=== PATIENT | male | born 1945 | race Caucasian/White ===

== ENCOUNTER → 2021-12-20 | Outpatient (CLI) | payer MEDICARE ==
[~2021-12-20] MED LIST: ACYC400 PO; ASCO500 PO; Acyclovir400 MG PO; BUPR150ER PO; BUTALB-ASPIRIN1 EAC1 PO; BUTASPCAFT PO; CHOL10002; Coumadin2 MG PO; DESVENLAFAXINE100 MG PO; DIGO.25 PO; FLONASE ALLERG9.9 M2; Flomax0.4 MG PO; Hair, Skin & N1 EACH PO; LANOXIN125 MCG PO; LAVAP17G PO; LORA.5 PO; LOSA50 PO; LOSARTAN POTAS100 MG PO; Levitra20 MG PO; MULTIPLE VITAM1 EACH PO; SILD25T PO; VERA180ERB PO; Verapamil HCl360 MG PO; Viagra100 MG PO; Vitamin D2000 UNIT PO; WARF2 PO; WARF4 PO
[2021-12-20 14:17] LABS: Adenovirus F 40/41 Not Detected (NOT DETECT); Astrovirus Not Detected (NOT DETECT); Campylobacter Sp Not Detected (NOT DETECT); Cryptosporidium Not Detected (NOT DETECT); Cyclospora Cayetanensis Not Detected (NOT DETECT); E. Coli O157 Not Detected (NOT DETECT); Entamoeba Histolytica Not Detected (NOT DETECT); Enteroaggregative E. coli-EAEC Not Detected (NOT DETECT); Enteropathogenic E. coli-EPEC Not Detected (NOT DETECT); Enterotoxigenic E. coli-ETEC Not Detected (NOT DETECT); Giardia Lamblia Not Detected (NOT DETECT); Norovirus GI/GII Not Detected (NOT DETECT); Plesiomonas Shigelloides Not Detected (NOT DETECT); Rotavirus A Not Detected (NOT DETECT); Salmonella Sp Not Detected (NOT DETECT); Sapovirus Not Detected (NOT DETECT); Shiga Toxin-prod E. coli-STEC Not Detected (NOT DETECT); Shigella/Enteroin E. coli-EIEC Not Detected (NOT DETECT); Vibrio Cholerae Not Detected (NOT DETECT); Vibrio Sp Not Detected (NOT DETECT); Yersinia Enterocolitica Not Detected (NOT DETECT)
== END | disposition home or self-care (01) ==
LOC: LAB 10:38 → LAB SHORT 10:38 → LAB FUT 12-19 18:10
PROVIDERS: Family Medicine
DX: R19.7 Diarrhea, unspecified (principal)
CPT/HCPCS: 87507

== ENCOUNTER → 2022-09-17 | Outpatient (CLI) | payer MEDICARE ==
[2022-09-17 16:45] LABS: BASOPHILS PERCENT AUTO 1 % (0-2); EOSINOPHILS ABSOLUTE AUTO 0.15 K/mm3 (0.00-0.68); EOSINOPHILS PERCENT AUTO 2 % (0-6); Hematocrit 42.7 % (37.0-53.0); Hemoglobin 14.5 g/dL (13.5-17.5); IMMATURE GRAN ABSOLUTE AUTO 0.03 K/mm3 (0.00-0.10); IMMATURE GRAN PERCENT AUTO 0 % (0-1); LYMPHOCYTES ABSOLUTE AUTO 1.37 K/mm3 (0.84-5.20); LYMPHOCYTES PERCENT AUTO 18 % (21-46); MONOCYTES ABSOLUTE AUTO 0.57 K/mm3 (0.16-1.47); MONOCYTES PERCENT AUTO 8 % (4-13); Mean Corpuscular HGB 31.3 pg (26.0-34.0); Mean Corpuscular Volume 92 fL (80-100); Mean Platelet Volume 10.6 fL (9.1-12.4); NEUTROPHILS ABSOLUTE AUTO 5.36 K/mm3 (1.96-9.15); NEUTROPHILS PERCENT AUTO 71 % (41-73); Platelet Count 212 K/mm3 (150-400); RDW Coefficient Variation 13.2 % (11.7-14.2); RDW Standard Deviation 44.3 fL (35.1-46.3); Red Blood Cell Count 4.64 M/mm3 (4.30-5.90); White Blood Cell Count 7.58 K/mm3 (4.00-11.30)
[2022-09-17 18:29] LABS: Alanine Aminotransfer (ALT/SGP 23 U/L (12-78); Albumin/Globulin Ratio 1.2 (0.8-1.8); Alk Phos 44 U/L (50-136); Anion Gap 5 mmol/L (6-16); Aspartate Aminotrans (AST/SGOT 18 U/L (12-37); Blood Urea Nitrogen 24 mg/dL (8-24); CHOL/HDL RATIO 4.2; CO2, Blood 26 mmol/L (21-32); Calcium, Blood 9.1 mg/dL (8.5-10.1); Chloride, Blood 108 mmol/L (98-108); Cholesterol 147 mg/dL (50-200); Globulin, Blood 3.2 g/dL (2.2-4.0); Glucose, Blood 119 mg/dL (70-99); HDL Cholesterol 35 mg/dL (>39); LDL/HDL RATIO 2.5; Low Density Lipoprotein Chol 86 mg/dL (0-110); Potassium, Blood 3.9 mmol/L (3.5-5.5); Sodium, Blood 139 mmol/L (136-145); Total Protein, Blood 7.2 g/dL (6.4-8.2); Triglycerides 129 mg/dL (30-160); Very Low Density Lipoprot Chol 25 mg/dL (6-32)
[2022-09-17 18:40] LABS: Bun/Creatinine Ratio 21.8 (12.0-20.0); Digoxin (Lanoxin) 1.05 ug/mL (0.80-2.00); Glomerular Filtration Rate 69 (60-); Prostate Specific Antigen 0.923 ng/mL (0.000-4.000)
== END | disposition home or self-care (01) ==
LOC: LAB SHORT 15:24 → LAB 15:24
PROVIDERS: Family Medicine
DX: N42.9 Disorder of prostate, unspecified (principal); I48.0 Paroxysmal atrial fibrillation; I10 Essential (primary) hypertension
CPT/HCPCS: 80053; 80061; 80162; 84153; 84443; 85025

== ENCOUNTER → 2023-03-25 | Outpatient (CLI) | payer MEDICARE ==
[2023-03-25 11:55] LABS: BASOPHILS ABSOLUTE AUTO 0.11 K/mm3 (0.00-0.23); BASOPHILS PERCENT AUTO 1 % (0-2); EOSINOPHILS ABSOLUTE AUTO 0.26 K/mm3 (0.00-0.68); EOSINOPHILS PERCENT AUTO 3 % (0-6); Hematocrit 42.3 % (37.0-53.0); Hemoglobin 14.5 g/dL (13.5-17.5); IMMATURE GRAN ABSOLUTE AUTO 0.07 K/mm3 (0.00-0.10); IMMATURE GRAN PERCENT AUTO 1 % (0-1); LYMPHOCYTES ABSOLUTE AUTO 1.31 K/mm3 (0.84-5.20); LYMPHOCYTES PERCENT AUTO 15 % (21-46); MONOCYTES ABSOLUTE AUTO 0.61 K/mm3 (0.16-1.47); MONOCYTES PERCENT AUTO 7 % (4-13); Mean Corpuscular HGB 31.5 pg (26.0-34.0); Mean Corpuscular HGB Conc 34.3 g/dL (31.5-36.5); Mean Corpuscular Volume 92 fL (80-100); Mean Platelet Volume 10.5 fL (9.1-12.4); NEUTROPHILS ABSOLUTE AUTO 6.13 K/mm3 (1.96-9.15); NEUTROPHILS PERCENT AUTO 72 % (41-73); Platelet Count 196 K/mm3 (150-400); RDW Coefficient Variation 13.5 % (11.7-14.2); RDW Standard Deviation 45.1 fL (35.1-46.3); White Blood Cell Count 8.49 K/mm3 (4.00-11.30)
[2023-03-25 12:11] LABS: International Normalized Ratio 3.49; Prothrombin Time Results 34.1 Sec (9.7-11.5)
[2023-03-25 12:27] LABS: Alanine Aminotransfer (ALT/SGP 18 U/L (12-78); Albumin, Blood 3.8 g/dL (3.4-5.0); Albumin/Globulin Ratio 1.1 (0.8-1.8); Alk Phos 63 U/L (50-136); Anion Gap 6 mmol/L (6-16); Aspartate Aminotrans (AST/SGOT 22 U/L (12-37); Bilirubin, Total 0.6 mg/dL (0.1-1.0); Blood Urea Nitrogen 16 mg/dL (8-24); Bun/Creatinine Ratio 14.7 (12.0-20.0); CHOL/HDL RATIO 5.4; CO2, Blood 28 mmol/L (21-32); Calcium, Blood 8.9 mg/dL (8.5-10.1); Chloride, Blood 107 mmol/L (98-108); Cholesterol 172 mg/dL (50-200); Creatinine, Blood 1.09 mg/dL (0.60-1.20); Digoxin (Lanoxin) 1.37 ug/mL (0.80-2.00); Globulin, Blood 3.4 g/dL (2.2-4.0); Glomerular Filtration Rate 69 (60-); Glucose, Blood 144 mg/dL (70-99); HDL Cholesterol 32 mg/dL (>39); LDL/HDL RATIO 2.9; Low Density Lipoprotein Chol 94 mg/dL (0-110); Potassium, Blood 4.4 mmol/L (3.5-5.5); Sodium, Blood 141 mmol/L (136-145); Total Protein, Blood 7.2 g/dL (6.4-8.2); Triglycerides 230 mg/dL (30-160); Very Low Density Lipoprot Chol 46 mg/dL (6-32)
== END | disposition home or self-care (01) ==
LOC: LAB SHORT 10:05 → LAB 10:05
PROVIDERS: Family Medicine
DX: Z00.01 Encounter for general adult medical examination with abnormal findings (principal); Z51.81 Encounter for therapeutic drug level monitoring; I10 Essential (primary) hypertension; I48.0 Paroxysmal atrial fibrillation; R53.83 Other fatigue; Z79.01 Long term (current) use of anticoagulants
CPT/HCPCS: 80053; 80061; 80162; 84443; 85025; 85610

== ENCOUNTER 2023-05-13 12:28 | Inpatient (IN) | payer MEDICARE ==
[~2023-05-13] VITALS: Ht 175.3 cm; Wt 68.5 kg
[2023-05-13 13:21] LABS: BASOPHILS ABSOLUTE AUTO 0.04 K/mm3 (0.00-0.23); BASOPHILS PERCENT AUTO 0 % (0-2); EOSINOPHILS PERCENT AUTO 1 % (0-6); Hematocrit 43.2 % (37.0-53.0); Hemoglobin 15.5 g/dL (13.5-17.5); IMMATURE GRAN ABSOLUTE AUTO 0.07 K/mm3 (0.00-0.10); IMMATURE GRAN PERCENT AUTO 1 % (0-1); LYMPHOCYTES ABSOLUTE AUTO 1.74 K/mm3 (0.84-5.20); LYMPHOCYTES PERCENT AUTO 19 % (21-46); MONOCYTES ABSOLUTE AUTO 1.24 K/mm3 (0.16-1.47); MONOCYTES PERCENT AUTO 13 % (4-13); Mean Corpuscular HGB 31.9 pg (26.0-34.0); Mean Corpuscular HGB Conc 35.9 g/dL (31.5-36.5); Mean Corpuscular Volume 89 fL (80-100); Mean Platelet Volume 10.4 fL (9.1-12.4); NEUTROPHILS ABSOLUTE AUTO 6.18 K/mm3 (1.96-9.15); NEUTROPHILS PERCENT AUTO 66 % (41-73); Platelet Count 219 K/mm3 (150-400); RDW Coefficient Variation 13.5 % (11.7-14.2); RDW Standard Deviation 43.8 fL (35.1-46.3); Red Blood Cell Count 4.86 M/mm3 (4.30-5.90); White Blood Cell Count 9.37 K/mm3 (4.00-11.30)
[2023-05-13 13:53] LABS: Albumin/Globulin Ratio 1.1 (0.8-1.8); Bilirubin, Total 1.8 mg/dL (0.1-1.0); Bun/Creatinine Ratio 46.6 (12.0-20.0); Calcium, Blood 8.6 mg/dL (8.5-10.1); Creatinine, Blood 2.08 mg/dL (0.60-1.20); Globulin, Blood 3.5 g/dL (2.2-4.0); Total Protein, Blood 7.5 g/dL (6.4-8.2)
[2023-05-13 14:06] LABS: International Normalized Ratio 3.56; Prothrombin Time Results 34.8 Sec (9.7-11.5)
[2023-05-13] MEDS ORDERED: LEVSOD25 PO (16:50)
[2023-05-13] MEDS ORDERED: CARBIDOPA-LEVO1 EA21 PO (16:53)
[2023-05-13] MEDS ORDERED: TAMS.4ER PO (16:53)
[2023-05-13] MEDS ORDERED: QUET100 PO (16:53)
[2023-05-13] MEDS ORDERED: METO50ER PO (16:54)
[2023-05-13 17:42] VITALS: BP 167/75
--- NOTE | 2023-05-13 18:39 | NUR ---
ER ADMIT Patient alert & oriented x4, admitted for LADONNA. Increased weakness, SBAx1 assist with patient transfers. Patient denies syncope, SOB, lightheadedness. Patient fell at home last night, skin tear noted on right outer ear, documented skin tear, photo in chart. IV fluids infusing continously. Reviewed safety interventions with patient, bed alarm activated & audible, call light in reach. VSS. Telemetry, Afib @ 87.
[2023-05-13 19:36] VITALS: BP 151/95
[2023-05-13 22:48] VITALS: BP 125/71
--- NOTE | 2023-05-14 04:03 | NUR ---
SHIFT SUMMARY MR MELGAR IS ORIENTATED X4. GENERAL WEAKNESS, UP TO BSC WITH 1 PERSON ASSIST, LIQUID STOOL WITH STRONG ODOR SENT TO LAB. IN CONTACT ISOLATION AWAITING CDIFF RESULTS. ON 2ND LITER OF NS AT 100CC/HR. RIGHT EAR LACERATION HAD SOME BLOODY DISCHARGE - NON-ADHESIVE DRESSING APPLIED WHICH IS C,D,I. BED LOW, CALL LIGHT IN REACH, BED ALARM ON.
[2023-05-14 05:07] VITALS: BP 113/67
[2023-05-14 05:50] LABS: BASOPHILS ABSOLUTE AUTO 0.04 K/mm3 (0.00-0.23); BASOPHILS PERCENT AUTO 1 % (0-2); EOSINOPHILS ABSOLUTE AUTO 0.08 K/mm3 (0.00-0.68); EOSINOPHILS PERCENT AUTO 1 % (0-6); Hematocrit 39.7 % (37.0-53.0); IMMATURE GRAN ABSOLUTE AUTO 0.06 K/mm3 (0.00-0.10); IMMATURE GRAN PERCENT AUTO 1 % (0-1); LYMPHOCYTES ABSOLUTE AUTO 1.83 K/mm3 (0.84-5.20); LYMPHOCYTES PERCENT AUTO 25 % (21-46); MONOCYTES ABSOLUTE AUTO 1.36 K/mm3 (0.16-1.47); MONOCYTES PERCENT AUTO 19 % (4-13); Mean Corpuscular HGB 31.3 pg (26.0-34.0); Mean Corpuscular HGB Conc 35.3 g/dL (31.5-36.5); Mean Corpuscular Volume 89 fL (80-100); Mean Platelet Volume 10.2 fL (9.1-12.4); NEUTROPHILS ABSOLUTE AUTO 3.91 K/mm3 (1.96-9.15); NEUTROPHILS PERCENT AUTO 54 % (41-73); Platelet Count 207 K/mm3 (150-400); RDW Coefficient Variation 13.5 % (11.7-14.2); RDW Standard Deviation 43.8 fL (35.1-46.3); Red Blood Cell Count 4.47 M/mm3 (4.30-5.90); White Blood Cell Count 7.28 K/mm3 (4.00-11.30)
[2023-05-14 06:06] LABS: International Normalized Ratio 3.85; Prothrombin Time Results 37.5 Sec (9.7-11.5)
[2023-05-14 06:10] LABS: Albumin, Blood 3.4 g/dL (3.4-5.0); Albumin/Globulin Ratio 1.1 (0.8-1.8); Bilirubin, Total 1.3 mg/dL (0.1-1.0); Bun/Creatinine Ratio 55.8 (12.0-20.0); Calcium, Blood 7.8 mg/dL (8.5-10.1); Creatinine, Blood 1.38 mg/dL (0.60-1.20); Magnesium, Blood 2.8 mg/dL (1.6-2.4); Potassium, Blood 2.9 mmol/L (3.5-5.5); Total Protein, Blood 6.4 g/dL (6.4-8.2)
[2023-05-14 07:03] LABS: C DIFFICILE DNA NEGATIVE (Negative)
[2023-05-14 07:40] VITALS: BP 117/70
[2023-05-14 15:41] VITALS: BP 120/82
--- NOTE | 2023-05-14 19:14 | NUR ---
SHIFT SUMMARY: NO EVENTS WITH THE PATIENT TODAY. HE HAS BEEN PLEASANT AND COOPERATIVE. HE HAD ONE LOOSE STOOL TODAY (C-DIFF NEG) AND STARTED ON ANTIDIARRHEALS. HE IS GETTING IV FLUIDS AT 100ML/HR AND IS RESPONDING WELL. HE IS A 1 PERSON/SBA TO THE BEDSIDE COMMODE AND MAKES HIS NEEDS KNOWN. HE IS IN BED, ALERT, CALL WITHIN REACH, NO SIGNS OR SYMPTOMS OF DISTRESS. PLAN OF CARE ONGOING.
[2023-05-14 20:25] VITALS: BP 132/72
--- NOTE | 2023-05-15 04:16 | NUR ---
SHIFT SUMMARY MR MELGAR HAS NOT HAD ANY DIARRHEA TO FAR THIS SHIFT. HE DENIED PAIN. ON TELEMETRY IN AFIB WITH SOME V PACED BEATS. NO CALLS FROM MANAGER CHANNEL. HE APPEARS TO HAVE SLEPT WELL. BED LOW, CALL LIGHT IN REACH.
[2023-05-15 05:13] VITALS: BP 150/86
[2023-05-15 06:21] LABS: International Normalized Ratio 2.76; Prothrombin Time Results 27.4 Sec (9.7-11.5)
[2023-05-15 06:30] LABS: Calcium, Blood 7.9 mg/dL (8.5-10.1); Creatinine, Blood 1.11 mg/dL (0.60-1.20)
[2023-05-15 07:40] VITALS: BP 151/79
[2023-05-15 15:35] VITALS: BP 168/97
--- NOTE | 2023-05-15 17:00 | NUR ---
SHIFT SUMMARY: NO EVENTS OR CHANGES WITH PATIENT DURING SHIFT. HE WAS EVALUATED BY PT/OT TODAY AND WAS CLEARED INDEPENDENT AND NO FURTHER NEEDS FOR DISCHARGE. PATIENT HAS BEEN TOLERTING FOOD AND LIQUIDS WELL AND HASN'T HAD WATERY/LOOSE STOOLS. PT REPORTS NO BOWEL MOVEMENT TODAY. PLAN IS FOR HIM TO DISCHARGE HOME TOMORROW 05/16/23. PATIENT IN BED, ALERT, CALL LIGHT WITHIN REACH, NO SIGNS OR SYMPTOMS OF DISTRESS. PLAN OF CARE ONGOING.
[2023-05-15 19:34] VITALS: BP 150/87
[2023-05-16 03:38] VITALS: BP 125/62
--- NOTE | 2023-05-16 04:26 | NUR ---
SHIFT SUMMARY EDWARD WAS ALERT AND FULLY ORIENTED AT THE START OF THE SHIFT. PER MD NOTE PT IS A PROBABLE DISCHARGE ON DAYSHIFT TODAY. PT IS INDEPENDENT IN THE ROOM. NO NEW OR WORSENING COMPLAINTS, NO ACUTE EVENTS, NO CHANGES TO CONDITION NOTED. PT RESTING IN BED AT THIS TIME AT A LOW POSITION WITH THE CALL LIGHT IN REACH.
[2023-05-16 05:44] LABS: Hematocrit 37.2 % (37.0-53.0); Hemoglobin 12.8 g/dL (13.5-17.5)
[2023-05-16 05:57] LABS: International Normalized Ratio 2.12; Prothrombin Time Results 21.3 Sec (9.7-11.5)
[2023-05-16 06:31] LABS: Bun/Creatinine Ratio 21.3 (12.0-20.0); Calcium, Blood 8.4 mg/dL (8.5-10.1); Creatinine, Blood 1.22 mg/dL (0.60-1.20); Potassium, Blood 3.8 mmol/L (3.5-5.5)
[2023-05-16 07:31] VITALS: BP 128/68
[2023-05-16] MEDS ORDERED: FAMO20 PO (11:00)
[2023-05-16] MEDS ORDERED: METAMUCIL POWD798 GM PO (11:11)
[2023-05-16] MEDS ORDERED: VISBIOME 112.51 EACH PO (11:12)
--- NOTE | 2023-05-16 12:08 | NUR ---
DISCHARGE SUMMARY: PT DISCHARGED TO HOME WITH SPOUSE. PT AND SPOUSE EDUCATED ON DISCHARGE INSTRUCTIONS AND MEDICATIONS. PT/SP VU. SPOUSE ASSISTED PT WITH GETTING DRESSED. ASSISTED WITH PACKING UP BELONGINGS AND SENT WITH PT. PT ESCORTED TO POV VIA WC BY ANIKA.
== END 2023-05-16 11:46 | disposition home or self-care (01) | DRG 683 ==
LOC: ER 12:28 → MEDS 12:29 → ENPENDDIS 05-16 10:32 → MEDS 05-16 11:46
PROVIDERS: Emergency Medicine; ADMIT Hospitalist
DX: N17.9 Acute kidney failure, unspecified (principal); E87.0 Hyperosmolality and hypernatremia; I42.9 Cardiomyopathy, unspecified; R19.7 Diarrhea, unspecified; E86.0 Dehydration; E86.9 Volume depletion, unspecified; F32.A Depression, unspecified; F41.9 Anxiety disorder, unspecified; I48.91 Unspecified atrial fibrillation; R55 Syncope and collapse; S01.311A Laceration without foreign body of right ear, initial encounter; K59.00 Constipation, unspecified; I12.9 Hypertensive chronic kidney disease with stage 1 through stage 4 chronic kidney disease, or unspecified chronic kidney disease; N18.30 Chronic kidney disease, stage 3 unspecified; W22.8XXA Striking against or struck by other objects, initial encounter; Z95.0 Presence of cardiac pacemaker; Z79.01 Long term (current) use of anticoagulants
CPT/HCPCS: 36415; 80048; 80053; 83735; 84484; 85014; 85018; 85025; 85610; 87015; 87045; 87046; 87205; 87493; 87899; 93005; 93010; 93306; 96360-59; 96361; 97116; 97162; 97165; 97530; 97535; 99285-25; A9270; G0378; J7030; Q0167

== ENCOUNTER → 2023-05-26 | Outpatient (CLI) | payer MEDICARE ==
[~2023-05-26] MED LIST changes: +CARBIDOPA-LEVO1 EA21 PO; +FAMO20 PO; +LEVSOD25 PO; +METAMUCIL POWD798 GM PO; +METO50ER PO; +QUET100 PO; +TAMS.4ER PO; +VISBIOME 112.51 EACH PO
[2023-05-28 20:11] LABS: A/G RATIO 1.4 (1.2-2.2); BILIRUBIN, TOTAL 0.5 mg/dL (0.0-1.2); CALCIUM, SERUM 9.5 mg/dL (8.6-10.2); CREATININE, SERUM 1.2 mg/dL (0.76-1.27); GLOBULIN, TOTAL 2.9 g/dL (1.5-4.5); POTASSIUM, SERUM 5.4 mmol/L (3.5-5.2)
== END ==
LOC: LAB SHORT 17:17 → LAB 17:17
PROVIDERS: Family Medicine
DX: I10 Essential (primary) hypertension (principal)
CPT/HCPCS: 80053

== ENCOUNTER → 2023-06-18 | Outpatient (CLI) | payer MEDICARE ==
[2023-06-18 18:42] LABS: Free Thyroxine 0.74 ng/dL (0.70-1.60); Thyroid Stimulating Hormone 1.6 uIU/mL (0.360-4.800)
== END | disposition home or self-care (01) ==
LOC: LAB SHORT 16:29 → LAB 16:29
PROVIDERS: Family Medicine
DX: R53.83 Other fatigue (principal)
CPT/HCPCS: 84439; 84443

== ENCOUNTER → 2023-08-29 | Outpatient (CLI) | payer MEDICARE ==
[2023-08-29 16:07] LABS: International Normalized Ratio 2.68; Prothrombin Time Results 26.7 Sec (9.7-11.5)
== END | disposition home or self-care (01) ==
LOC: LAB SHORT 15:27 → LAB 15:27
PROVIDERS: Physician Assistant
DX: Z51.81 Encounter for therapeutic drug level monitoring (principal); Z79.01 Long term (current) use of anticoagulants
CPT/HCPCS: 85610; 85730

== ENCOUNTER 2023-08-31 19:24 | Emergency (ER) | payer MEDICARE ==
[~2023-08-31] VITALS: Ht 170.2 cm; Wt 71.2 kg
[2023-08-31 20:57] LABS: BASOPHILS ABSOLUTE AUTO 0.04 K/mm3 (0.00-0.23); BASOPHILS PERCENT AUTO 0 % (0-2); EOSINOPHILS ABSOLUTE AUTO 0.01 K/mm3 (0.00-0.68); EOSINOPHILS PERCENT AUTO 0 % (0-6); Hematocrit 36.1 % (37.0-53.0); Hemoglobin 12.4 g/dL (13.5-17.5); IMMATURE GRAN ABSOLUTE AUTO 0.06 K/mm3 (0.00-0.10); IMMATURE GRAN PERCENT AUTO 1 % (0-1); LYMPHOCYTES PERCENT AUTO 8 % (21-46); MONOCYTES PERCENT AUTO 2 % (4-13); Mean Corpuscular HGB 31.4 pg (26.0-34.0); Mean Corpuscular HGB Conc 34.3 g/dL (31.5-36.5); Mean Corpuscular Volume 91 fL (80-100); Mean Platelet Volume 10.5 fL (9.1-12.4); NEUTROPHILS PERCENT AUTO 89 % (41-73); Platelet Count 196 K/mm3 (150-400); RDW Coefficient Variation 13.6 % (11.7-14.2); RDW Standard Deviation 45.3 fL (35.1-46.3); Red Blood Cell Count 3.95 M/mm3 (4.30-5.90); White Blood Cell Count 10.31 K/mm3 (4.00-11.30)
[2023-08-31 21:16] LABS: International Normalized Ratio 2.35; Prothrombin Time Results 23.6 Sec (9.7-11.5)
[2023-08-31 21:21] LABS: Albumin, Blood 3.9 g/dL (3.4-5.0); Albumin/Globulin Ratio 1.2 (0.8-1.8); Bun/Creatinine Ratio 24.1 (12.0-20.0); Calcium, Blood 9.1 mg/dL (8.5-10.1); Creatinine, Blood 0.91 mg/dL (0.60-1.20); Globulin, Blood 3.2 g/dL (2.2-4.0); Potassium, Blood 3.7 mmol/L (3.5-5.5); Total Protein, Blood 7.1 g/dL (6.4-8.2)
[2023-09-01] MEDS ORDERED: Ondansetron HCl 2 MG / ML 2ML Vial IV ONE (00:40)
[2023-09-01 02:00] VITALS: BP 155/70
[2023-09-01] MEDS ORDERED: NS 1,000 ML IV SCH (02:30)
== END 2023-09-01 03:57 | disposition home or self-care (01) ==
LOC: ER 19:24
PROVIDERS: Nurse Practitioner
DX: E86.0 Dehydration (principal); Z79.899 Other long term (current) drug therapy; Z79.01 Long term (current) use of anticoagulants
CPT/HCPCS: 70450; 80053; 85025; 85610; 85730; 93005; 93010; 96374; 99284-25; J2405; J7030

== ENCOUNTER 2023-09-13 18:35 | Emergency (ER) | payer MEDICARE ==
[~2023-09-13] VITALS: Ht 175.3 cm; Wt 72.6 kg
[2023-09-13 18:57] LABS: BASOPHILS ABSOLUTE AUTO 0.11 K/mm3 (0.00-0.23); BASOPHILS PERCENT AUTO 1 % (0-2); EOSINOPHILS ABSOLUTE AUTO 0.12 K/mm3 (0.00-0.68); EOSINOPHILS PERCENT AUTO 1 % (0-6); Hematocrit 36.6 % (37.0-53.0); Hemoglobin 12.2 g/dL (13.5-17.5); IMMATURE GRAN ABSOLUTE AUTO 0.17 K/mm3 (0.00-0.10); IMMATURE GRAN PERCENT AUTO 1 % (0-1); LYMPHOCYTES ABSOLUTE AUTO 1.61 K/mm3 (0.84-5.20); LYMPHOCYTES PERCENT AUTO 12 % (21-46); MONOCYTES ABSOLUTE AUTO 0.87 K/mm3 (0.16-1.47); MONOCYTES PERCENT AUTO 6 % (4-13); Mean Corpuscular HGB 31.6 pg (26.0-34.0); Mean Corpuscular HGB Conc 33.3 g/dL (31.5-36.5); Mean Corpuscular Volume 95 fL (80-100); Mean Platelet Volume 10.2 fL (9.1-12.4); NEUTROPHILS ABSOLUTE AUTO 11.17 K/mm3 (1.96-9.15); NEUTROPHILS PERCENT AUTO 79 % (41-73); NRBC ABSOLUTE 0.02 K/mm3 (0.00-0.02); NRBC Auto 0.1 /100 WBC (0.0-0.2); Platelet Count 225 K/mm3 (150-400); RDW Coefficient Variation 14.5 % (11.7-14.2); RDW Standard Deviation 49.9 fL (35.1-46.3); Red Blood Cell Count 3.86 M/mm3 (4.30-5.90); White Blood Cell Count 14.05 K/mm3 (4.00-11.30)
[2023-09-13 19:12] LABS: International Normalized Ratio 1.91; Prothrombin Time Results 19.5 Sec (9.7-11.5)
[2023-09-13 19:17] LABS: Albumin, Blood 3.7 g/dL (3.4-5.0); Albumin/Globulin Ratio 1.1 (0.8-1.8); Bilirubin, Total 0.6 mg/dL (0.1-1.0); Bun/Creatinine Ratio 23.8 (12.0-20.0); Calcium, Blood 8.6 mg/dL (8.5-10.1); Creatinine, Blood 1.05 mg/dL (0.60-1.20); Globulin, Blood 3.3 g/dL (2.2-4.0); Potassium, Blood 4.6 mmol/L (3.5-5.5)
[2023-09-13] MEDS ORDERED: Tranexamic Acid 100 ML IV ONE (20:15)
[2023-09-13 21:07] VITALS: BP 147/84
== END 2023-09-13 21:05 | disposition home or self-care (01) ==
LOC: ER 18:35
PROVIDERS: Physician Assistant
DX: R04.0 Epistaxis (principal); I12.9 Hypertensive chronic kidney disease with stage 1 through stage 4 chronic kidney disease, or unspecified chronic kidney disease; N18.30 Chronic kidney disease, stage 3 unspecified; Z79.890 Hormone replacement therapy; Z79.899 Other long term (current) drug therapy; Z79.01 Long term (current) use of anticoagulants
CPT/HCPCS: 80053; 85025; 85610

== ENCOUNTER → 2023-11-23 | Outpatient (CLI) | payer MEDICARE ==
[2023-11-23 17:18] LABS: BASOPHILS ABSOLUTE AUTO 0.11 K/mm3 (0.00-0.23); BASOPHILS PERCENT AUTO 1 % (0-2); EOSINOPHILS ABSOLUTE AUTO 0.19 K/mm3 (0.00-0.68); EOSINOPHILS PERCENT AUTO 2 % (0-6); Hematocrit 43.4 % (37.0-53.0); Hemoglobin 14.2 g/dL (13.5-17.5); IMMATURE GRAN ABSOLUTE AUTO 0.03 K/mm3 (0.00-0.10); IMMATURE GRAN PERCENT AUTO 0 % (0-1); LYMPHOCYTES ABSOLUTE AUTO 1.71 K/mm3 (0.84-5.20); LYMPHOCYTES PERCENT AUTO 21 % (21-46); MONOCYTES ABSOLUTE AUTO 0.73 K/mm3 (0.16-1.47); MONOCYTES PERCENT AUTO 9 % (4-13); Mean Corpuscular HGB 28.6 pg (26.0-34.0); Mean Corpuscular HGB Conc 32.7 g/dL (31.5-36.5); Mean Corpuscular Volume 87 fL (80-100); Mean Platelet Volume 10.3 fL (9.1-12.4); NEUTROPHILS PERCENT AUTO 66 % (41-73); Platelet Count 240 K/mm3 (150-400); RDW Coefficient Variation 13.8 % (11.7-14.2); RDW Standard Deviation 43.6 fL (35.1-46.3); Red Blood Cell Count 4.97 M/mm3 (4.30-5.90); White Blood Cell Count 8.07 K/mm3 (4.00-11.30)
[2023-11-23 17:27] LABS: Free Thyroxine 0.75 ng/dL (0.70-1.60)
[2023-11-23 17:32] LABS: Albumin, Blood 4.1 g/dL (3.4-5.0); Albumin/Globulin Ratio 1.2 (0.8-1.8); Bilirubin, Total 0.5 mg/dL (0.1-1.0); Creatinine, Blood 1.16 mg/dL (0.60-1.20); Globulin, Blood 3.5 g/dL (2.2-4.0); Thyroid Stimulating Hormone 2.93 uIU/mL (0.360-4.800); Total Protein, Blood 7.6 g/dL (6.4-8.2)
== END | disposition home or self-care (01) ==
LOC: LAB 15:05 → LAB SHORT 15:05
PROVIDERS: Family Medicine
DX: I10 Essential (primary) hypertension (principal); R53.83 Other fatigue
CPT/HCPCS: 80053; 84439; 84443; 85025

== ENCOUNTER 2024-11-24 12:35 | Day surgery (SDC) | payer MEDICARE ==
[~2024-11-24] VITALS: Ht 172.7 cm; Wt 78.0 kg
[2024-11-24] VITALS (8 sets, daily range): BP systolic 143–183; BP diastolic 79–96
[~2024-11-24 12:35] MED LIST changes: +ATROVENT HFA12.9 GM INH; +CULTURELLE KID1 EA13 PO; +Flonase 0.05% N16 GM; +Mucinex600 MG PO; +OLAN5 PO
[2024-11-24] MEDS ORDERED: CeFAZolin Sodium 1000 mg Vial ONE (14:36)
[2024-11-24] MEDS ORDERED: Heparin Sodium 1000 Units/ML 10ML MDV ONE (14:37)
[2024-11-24] MEDS ORDERED: NS 500 ML IV ONE (14:37)
[2024-11-24] MEDS ORDERED: NS 100 ML IV ONE (14:38)
[2024-11-24] MEDS ORDERED: NS 1,000 ML IV ONE (14:38)
[2024-11-24] MEDS ORDERED: CeFAZolin Sodium 2,000 MG VIAL ONE (14:38)
[2024-11-24] MEDS ORDERED: Midazolam HCl 1MG / ML 2ML Vial ONE (15:04)
[2024-11-24] MEDS ORDERED: FentaNYL Citrate 50 MCG/ML 2 ML Injection ONE (15:04)
[2024-11-24] MEDS ORDERED: HydrALAZINE HCl 20 MG / ML 1ML Vial ONE (15:49)
--- NOTE | 2024-11-24 16:59 | NUR ---
pt back to recovery from lab. pt a&o. site soft and non-tender per pt. no bleeding/hematoma noted.
--- NOTE | 2024-11-24 18:10 | NUR ---
dr esparza discussed the procedure w/ pt and future plan of care. site soft and non-teder per pt. no bleeidng/hematoma noted. pt chnaged. pt given dc instructions and verbalized understanding. iv out. pt taken to [facility] via [facility]. picked pt up.
== END 2024-11-24 18:00 | disposition home or self-care (01) ==
LOC: MHTC 12:35
DX: Z45.010 Encounter for checking and testing of cardiac pacemaker pulse generator [battery] (principal); I48.21 Permanent atrial fibrillation; I08.0 Rheumatic disorders of both mitral and aortic valves; I42.0 Dilated cardiomyopathy; Z79.01 Long term (current) use of anticoagulants; Z79.899 Other long term (current) drug therapy
CPT/HCPCS: 33228; 99152; 99153; C1785; J0360; J0690; J1644; J2250; J3010; J7030; J7040